=== PATIENT | female | born 2000 | race Caucasian/White ===

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

== ENCOUNTER 2022-08-01 13:36 | Emergency (ER) | payer OTHER ==
[~2022-08-01] VITALS: Ht 175.3 cm; Wt 64.2 kg
[~2022-08-01 13:36] MED LIST: FLAGYL500 MG PO; HYDROCODON-ACE1 EA10 PO; NICOTINE PATCH1 EACH TD
== END 2022-08-01 15:48 | disposition home or self-care (01) ==
LOC: ED 13:36
DX: M79.671 Pain in right foot (principal)
CPT/HCPCS: 73610; 99283-25